=== PATIENT | male | born 1990 | race Caucasian/White ===

== ENCOUNTER 2019-09-30 04:40 | Emergency (ER) | payer OTHER ==
[~2019-09-30] VITALS: Ht 193 cm; Wt 104.3 kg
[2019-09-30 04:52] VITALS: BP 140/80
--- NOTE | 2019-09-30 05:10 | ER.PDOC ---
General Chief Complaint: Requesting Medical Care Stated Complaint: EARACHE Time seen by MD: 05:07 Source: patient Exam Limitations: no limitations History of Present Illness Initial Comments Left earache for 2 days. Timing/Duration: gradual Severity: moderate Location of Pain: (L) Ear Associated Symptoms: sharp earache Past Medical History Medical History: no pertinent history Surgical History: no surgical history Constitutional: no symptoms reported Ears: see HPI Throat: no symptoms reported Respiratory: no symptoms reported Cardiovascular: no symptoms reported Gastrointestinal: no symptoms reported All Other Systems: Reviewed and Negative Physical Exam General Appearance: alert, no distress Ears: auricle, erythema TM's: erythema (L) (with redness) Nose: nml inspection Head/Neck: atraumatic, neck nml inspection Eyes: eyes nml inspection, PERRL, no nystagmus Resp/CVS: no resp distress, lungs clear, heart sounds nml, reg. rate & rhythm Abdomen: non-tender, no organomegaly Skin Exam: Normal Color, Warm/Dry NEURO/PSYCH: oriented X3, mood/effect nml Departure Time of Disposition: 05:08 Disposition: 01 HOME, SELF-CARE Impression: Primary Impression: Otitis media Qualified Codes: H66.90 - Otitis media, unspecified, unspecified ear Condition: Stable Referrals: PCP,UNKNOWN (PCP) PRIMARY CARE PROVIDER Additional Instructions: Amoxil Cortisporin Otic Ibuprofen F/U with your PCP in 2-3 days Return to ED if worsening symptoms or concerns Duration or Time Spent with Pa: 10 mins MARISSA TA MD Sep 30, 2019 05:09
== END 2019-09-30 05:20 | disposition home or self-care (01) ==
LOC: ER 04:40
DX: H66.92 Otitis media, unspecified, left ear (principal)
CPT/HCPCS: 99283